=== PATIENT | female | born 1990 | race Hispanic/Latino ===

== ENCOUNTER 2018-02-16 19:10 | Inpatient (IN) | payer OTHER ==
[2018-02-16] MEDS ORDERED: Methylergonovine 0.2 MG/ML VIAL IM PRN (20:06)
[2018-02-16] MEDS ORDERED: HYDROcodone/Acetaminophen 5/325 mg Tablet PO PRN (20:06)
[2018-02-16] MEDS ORDERED: NS / Oxytocin 40 units/1000ml 1,000 ML IV PRN (20:06)
[2018-02-16] MEDS ORDERED: Butorphanol Tartrate 1 MG/ML VIAL SLOW IVP PRN (20:06)
[2018-02-16] MEDS ORDERED: Misoprostol 200 MCG TAB PR PRN (20:06)
[2018-02-16] MEDS ORDERED: Lidocaine 1% (PF) 30 ML VIAL SC PRN (20:06)
[2018-02-16] MEDS ORDERED: Diphenoxylate HCl/Atropine Tablet PO PRN (20:06)
[2018-02-16] MEDS ORDERED: Carboprost 250 MCG/ML AMP IM PRN (20:06)
[2018-02-16] MEDS ORDERED: Ondansetron PF 4 MG/2 ML Vial IVP PRN ×2 (20:06→22:01)
[2018-02-16] MEDS ORDERED: Ibuprofen 800 MG TAB PO PRN (20:06)
[2018-02-16] MEDS ORDERED: Penicillin G Potassium 5 MILL.UNITS in Sodium Chloride 0.9% 100 ML IVPB SCH (20:15)
[2018-02-16 20:30] LABS: Hemoglobin 12.5 g/dL (12.0-16.0); Mean Corpuscular HGB CONC 34.8 g/dL (32.0-36.0); Mean Corpuscular Hemoglobin 32.7 pg (27.0-31.0); Mean Corpuscular Volume 93.9 fL (78.0-98.0); Mean Platelet Volume 6.9 fL (7.4-10.4); Platelet Count 291 thou/uL (130-400); Red Blood Cell (RBC) Count 3.82 mill/uL (4.20-5.40); White Blood Cell (WBC) Count 7.6 thou/uL (4.8-10.8)
[2018-02-16 20:59] VITALS: BMI 29.5
[2018-02-16] MEDS: Lactated Ringer's 1,000 ML IV SCH ×2 (21:04→23:01)
[2018-02-16 21:10] LABS: Syphilis Antibody Nonreactive (Nonreactive); Syphilis Antibody Index 0.04 S/CO (<1.00 Non-Reactive)
[2018-02-16] MEDS ORDERED: Fentanyl 4 mcg/Bup 0.1% Cadd 100 ML ONE (21:27)
[2018-02-16] MEDS ORDERED: ePHEDrine/0.9% NaCl/PF SYRINGE 50 mg/10 ml SLOW IVP PRN (22:01)
[2018-02-16] MEDS ORDERED: Acetaminophen 325 MG TAB PO PRN (22:01)
[2018-02-16] MEDS ORDERED: Promethazine HCl 25 MG/ML VIAL IM PRN (22:01)
[2018-02-16] MEDS ORDERED: diphenhydrAMINE 50 MG/ML VIAL IVP PRN (22:01)
[2018-02-16] MEDS ORDERED: Naloxone HCl 0.4 mg/ml Vial IVP PRN ×2 (22:01)
[2018-02-16] MEDS ORDERED: Lactated Ringer's 500 ML IV PRN (22:01)
[2018-02-16] MEDS ORDERED: Eucerin (Mineral Oil/Petrolatum,White) 30 gm Jar TOP PRN (22:01)
[2018-02-16] MEDS ORDERED: Fentanyl 4 mcg/Bupivacaine 0.1% Cassette 100 ML EPIDURAL SCH (22:15)
[2018-02-16] MEDS ORDERED: Communication Order-Pharmacy FS SCH (22:15)
[2018-02-16 23:11] LABS: HBSAg Index 0.21 S/CO (0-0.99); Hep B Surf Ag Non-Reactive S/CO (NonReactive)
[2018-02-17] MEDS ORDERED: Penicillin G 2.5 MILL.units 2.5 MILL.UNITS in Premix Bag 1 BAG IVPB SCH (01:00)
[2018-02-17] MEDS ORDERED: Milk Of Magnesia 30 ML UDCUP PO PRN (02:29)
[2018-02-17] MEDS ORDERED: Benzocaine/Menthol 20-0.5% 60 ML CAN TOP PRN (02:29)
[2018-02-17] MEDS ORDERED: diphenhydrAMINE 25 MG CAP PO PRN (02:29)
[2018-02-17] MEDS ORDERED: Bisacodyl 10 MG SUPP PR PRN (02:29)
[2018-02-17] MEDS ORDERED: NS / Oxytocin 40 units/1000ml 1,000 ML IV SCH (02:29)
[2018-02-17] MEDS ORDERED: Preparation H Ointment 28 GM TUBE PR PRN (02:29)
[2018-02-17] MEDS ORDERED: HYDROcodone/Acetaminophen 5/325 mg Tablet PO PRN ×2 (02:29)
[2018-02-17] MEDS ORDERED: Ondansetron PF 4 MG/2 ML Vial IVP PRN (02:29)
[2018-02-17] MEDS ORDERED: Lanolin Ointment 7 GM TUBE TOP PRN (02:29)
[2018-02-17 08:14] LABS: Hemoglobin 11.5 g/dL (12.0-16.0); Mean Corpuscular HGB CONC 33.4 g/dL (32.0-36.0); Mean Corpuscular Hemoglobin 31.7 pg (27.0-31.0); Mean Corpuscular Volume 94.8 fL (78.0-98.0); Platelet Count 221 thou/uL (130-400); RBC Distribution Width 12.1 % (11.5-14.5); Red Blood Cell (RBC) Count 3.62 mill/uL (4.20-5.40); White Blood Cell (WBC) Count 10.4 thou/uL (4.8-10.8)
[2018-02-17] MEDS: Prenatal Vitamin 1 TAB PO SCH (08:47)
[2018-02-17] MEDS: Ibuprofen 800 MG TAB PO SCH ×3 (08:47→21:20)
[2018-02-17] MEDS: Ferrous Sulfate 325 MG TAB PO SCH ×2 (09:07→17:35)
[2018-02-17] MEDS: Docusate Calcium (SURFAK) 240 MG CAP PO SCH ×2 (09:07→21:20)
[2018-02-17] MEDS ORDERED: Bupivacaine/Epinephrine 0.25% 30 ML VIAL ONE (11:11)
[2018-02-18] MEDS: Ibuprofen 800 MG TAB PO SCH ×3 (05:54→21:08)
[2018-02-18] MEDS: Ferrous Sulfate 325 MG TAB PO SCH ×2 (08:00→16:15)
[2018-02-18] MEDS: Docusate Calcium (SURFAK) 240 MG CAP PO SCH ×2 (08:41→21:08)
[2018-02-18] MEDS: Prenatal Vitamin 1 TAB PO SCH (08:41)
[2018-02-19] MEDS: Ibuprofen 800 MG TAB PO SCH (06:35)
[2018-02-19] MEDS: Ferrous Sulfate 325 MG TAB PO SCH (07:21)
[2018-02-19] MEDS: Prenatal Vitamin 1 TAB PO SCH (08:44)
[2018-02-19] MEDS: Docusate Calcium (SURFAK) 240 MG CAP PO SCH (08:44)
[2018-02-19 08:58] VITALS: BP 115/67; TEMP 98
== END 2018-02-19 11:00 | disposition home or self-care (01) | DRG 807 ==
LOC: L&D/OP 19:10 → L&D 20:01 → 3SW 02-17 02:39
PROVIDERS: ADMIT Family Medicine; ATTEND Family Medicine
PROC: 10E0XZZ Delivery of Products of Conception, External Approach (ICD-10-PCS; principal; 2018-02-17)
PROC: 0HQ9XZZ Repair Perineum Skin, External Approach (ICD-10-PCS; 2018-02-17)
DX: O70.0 First degree perineal laceration during delivery (principal); Z37.0 Single live birth; Z3A.39 39 weeks gestation of pregnancy
CPT/HCPCS: 36415; 85027; 86780; 86850; 86900; 86901; 87340; J2001; J2540; J7050